=== PATIENT | male | born 1980 | race Caucasian/White ===

== ENCOUNTER → 2019-05-19 | Outpatient (CLI) | payer OTHER ==
[~2019-05-19] MED LIST: ACET-1600 PO; ACYC-114 PO; IBRU140C PO; TAMS-11 PO
[2019-05-19 15:46] LABS: MICROSCOPIC INDICATED
== END | disposition home or self-care (01) ==
LOC: STAR 14:41
PROVIDERS: ATTEND Student in an Organized Health Care Education/Training Program
DX: Z01.818 Encounter for other preprocedural examination (principal); N20.0 Calculus of kidney
CPT/HCPCS: 81001; 87086

== ENCOUNTER 2019-06-01 13:43 | Day surgery (SDC) | payer OTHER ==
[~2019-06-01] VITALS: Ht 188 cm; Wt 127.1 kg
[2019-06-01] MEDS ORDERED: LACTATED RINGERS 1,000 ML IV ONE (14:07)
[2019-06-01 14:09] VITALS: BP 125/88
[2019-06-01] MEDS ORDERED: MIDAZOLAM 1 MG/ML, 2ML ONE (14:37)
[2019-06-01] MEDS ORDERED: FENTANYL PF 250 MCG/5ML ONE (14:38)
[2019-06-01] MEDS ORDERED: PROPOFOL 10 MG/ML, 20ML ONE ×2 (14:39→16:50)
[2019-06-01] MEDS ORDERED: ROCURONIUM 10MG/ML,5ML ONE (14:41)
[2019-06-01] MEDS ORDERED: LIDOCAINE-MPF 2% ,5ML ONE (14:41)
[2019-06-01] MEDS ORDERED: CEFAZOLIN 1,000 MG ONE (16:50)
[2019-06-01] MEDS ORDERED: DEXAMETHASONE 4 MG/ML, 1ML ONE (16:50)
[2019-06-01] MEDS ORDERED: SUCCINYLCHOLINE 20 MG/ML, 10ML ONE (16:50)
[2019-06-01] MEDS ORDERED: ONDANSETRON 2MG/ML, 2ML ONE (16:50)
[2019-06-01] MEDS ORDERED: ROCURONIUM 10 MG/ML,10ML ONE (16:50)
[2019-06-01] MEDS ORDERED: HYDROmorphone 1 MG/ML, 1ML INJ IV PRN (17:30)
[2019-06-01] MEDS ORDERED: MEPERIDINE/PF 25MG/0.5ML IVPush PRN (17:30)
[2019-06-01] MEDS ORDERED: LABETALOL 5MG/ML, 20ML IV PRN (17:30)
[2019-06-01] MEDS ORDERED: DIAZEPAM 5 MG/ML, 2ML IV PRN ×2 (17:30)
[2019-06-01] MEDS ORDERED: KETOROLAC 30 MG/1 ML IV PRN (17:30)
[2019-06-01] MEDS ORDERED: OXYcodone 5 MG/5 ML ORAL.SOL UDC PO PRN (17:30)
[2019-06-01] MEDS ORDERED: METOCLOPRAMIDE 5 MG/ML, 2ML IV PRN (17:30)
[2019-06-01] MEDS ORDERED: FENTANYL PF 100 MCG/2ML IV PRN (17:30)
[2019-06-01] MEDS ORDERED: hydrALAzine 20 MG/ML, 1ML IV PRN (17:30)
[2019-06-01] MEDS ORDERED: PROMETHAZINE 25 MG/ML, 1ML IV PRN (17:30)
[2019-06-01] MEDS ORDERED: ALBUTEROL SULFATE 2.5 MG/3 ML NPPB PRN (17:30)
[2019-06-01] MEDS ORDERED: ONDANSETRON 2MG/ML, 2ML IVPush PRN (17:30)
[2019-06-01] MEDS ORDERED: MEPERIDINE/PF 25MG/ML,1ML ONE (18:53)
[2019-06-01] MEDS ORDERED: OXYcodone 5 MG/5 ML ORAL.SOL UDC ONE (19:07)
[2019-06-01] MEDS ORDERED: KETOROLAC 30 MG/1 ML ONE (19:10)
[2019-06-01] MEDS ORDERED: hydrALAzine 20 MG/ML, 1ML ONE (19:14)
[2019-06-01] MEDS ORDERED: OMNIPAQUE 350 MG/ML, 50 ML BOTTLE ONE (19:30)
== END 2019-06-01 21:00 | disposition home or self-care (01) ==
LOC: OR 13:43 → 4NE 20:02 → OR 21:00
PROVIDERS: ATTEND Student in an Organized Health Care Education/Training Program
DX: N20.0 Calculus of kidney (principal); E21.3 Hyperparathyroidism, unspecified; G47.33 Obstructive sleep apnea (adult) (pediatric); F17.210 Nicotine dependence, cigarettes, uncomplicated; C95.90 Leukemia, unspecified not having achieved remission; Z79.899 Other long term (current) drug therapy; Z72.89 Other problems related to lifestyle; Z98.890 Other specified postprocedural states; Z80.3 Family history of malignant neoplasm of breast; Z82.49 Family history of ischemic heart disease and other diseases of the circulatory system
CPT/HCPCS: 52353; 52356; 74420; 82360; 88300; C1769; C2617; J0330; J0690; J1100; J2175; J2250; J2405; J2704; J3010; Q9967; G0378

== ENCOUNTER 2019-07-23 12:45 | Outpatient (CLI) | payer OTHER ==
[~2019-07-23 12:45] MED LIST changes: +POTA10TA17 PO
== END 2019-07-23 23:59 | disposition home or self-care (01) ==
LOC: STAR 12:45
PROVIDERS: ATTEND Surgery
DX: Z11.59 Encounter for screening for other viral diseases (principal); Z01.818 Encounter for other preprocedural examination
CPT/HCPCS: U0001

== ENCOUNTER 2019-07-27 05:46 | Day surgery (SDC) | payer OTHER ==
[~2019-07-27] VITALS: Ht 188 cm; Wt 127.0 kg
[2019-07-27] MEDS ORDERED: LACTATED RINGERS 1,000 ML IV SCH (06:01)
[2019-07-27 06:03] VITALS: BP 155/96
[2019-07-27] MEDS ORDERED: CHLORHEXIDINE 15 ML UDC MM ONE (06:30)
[2019-07-27] MEDS ORDERED: MIDAZOLAM 1 MG/ML, 2ML ONE (06:54)
[2019-07-27] MEDS ORDERED: FENTANYL PF 100 MCG/2ML ONE ×2 (06:54→09:51)
[2019-07-27] MEDS ORDERED: ONDANSETRON 2MG/ML, 2ML ONE (07:42)
[2019-07-27] MEDS ORDERED: CEFAZOLIN 1,000 MG ONE (07:42)
[2019-07-27] MEDS ORDERED: DEXAMETHASONE 4 MG/ML, 1ML ONE (07:42)
[2019-07-27] MEDS ORDERED: EPHEDRINE 50 MG/ML, 1ML ONE (07:42)
[2019-07-27] MEDS ORDERED: PROPOFOL 10 MG/ML, 20ML ONE (07:42)
[2019-07-27] MEDS ORDERED: SUCCINYLCHOLINE 20 MG/ML, 10ML ONE (07:42)
[2019-07-27] MEDS ORDERED: PROMETHAZINE 25 MG/ML, 1ML IV PRN (08:30)
[2019-07-27] MEDS ORDERED: HYDROmorphone 2 MG/ML, 1ML IVPush PRN (08:30)
[2019-07-27] MEDS ORDERED: ACETAMINOPHEN 325 MG TABLET PO PRN (08:30)
[2019-07-27] MEDS ORDERED: FENTANYL PF 100 MCG/2ML IV PRN (08:30)
[2019-07-27] MEDS ORDERED: MEPERIDINE/PF 25MG/ML,1ML IVPush PRN (08:30)
[2019-07-27] MEDS ORDERED: OXYcodone 5 MG/5 ML ORAL.SOL UDC PO PRN (08:30)
[2019-07-27 09:18] LABS: 10MIN %DROP IOPTH 84 %; 5MIN %DROP IOPTH 78 %; IOPTH BASELINE 509 pg/mL; SAMPLE 5 %DROP IOPTH 88 %; SAMPLE 6 %DROP IOPTH 91 %
[2019-07-27] MEDS ORDERED: ACETAMINOPHEN 650 MG/20.3 ML UDC ONE (10:06)
== END 2019-07-27 11:48 | disposition home or self-care (01) ==
LOC: OR 05:46 → OUT 11:48
PROVIDERS: ATTEND Surgery
DX: E21.0 Primary hyperparathyroidism (principal); C91.10 Chronic lymphocytic leukemia of B-cell type not having achieved remission; G47.33 Obstructive sleep apnea (adult) (pediatric); F17.210 Nicotine dependence, cigarettes, uncomplicated; E66.9 Obesity, unspecified; Z68.35 Body mass index [BMI] 35.0-35.9, adult; Z79.899 Other long term (current) drug therapy; Z87.442 Personal history of urinary calculi; Z90.49 Acquired absence of other specified parts of digestive tract; Z98.890 Other specified postprocedural states; Z82.49 Family history of ischemic heart disease and other diseases of the circulatory system
CPT/HCPCS: 36415; 60500; 83970; 88305; 88331; C1760; J0330; J0690; J1100; J2250; J2405; J2704; J3010; J7120